=== PATIENT | male | born 1985 | race Caucasian/White ===

== ENCOUNTER 2018-05-13 14:17 | Emergency (ER) | payer OTHER ==
[~2018-05-13] VITALS: Ht 162.6 cm; Wt 58.5 kg
[2018-05-13 14:29] VITALS: BP 133/79
--- NOTE | 2018-05-13 14:41 | NUR ---
PT AMBULATED TO ER BED 02
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
[2018-05-13] MEDS ORDERED: KETOROLAC 30 MG/ML VIAL IM ONE (15:15)
[2018-05-13] MEDS ORDERED: FLUORESCEIN OPTH STRIP 0.6 MG OP ONE (15:15)
[2018-05-13] MEDS ORDERED: TETRACAINE HCL/PF 0.5% OPTH 4 ML BTL OP ONE (15:15)
--- NOTE | 2018-05-13 15:16 | NUR ---
PT REFUSES TO HAVE IM SHOT. MADE DR LUCAS AWARE. ORDERS RECEIVED
[2018-05-13] MEDS ORDERED: IBUPROFEN 600 MG TAB PO ONE (15:25)
--- NOTE | 2018-05-13 15:34 | NUR ---
PT REFUSES TO TAKE PAIN PO MEDICATION AT THIS TIME. PT STATES HIS STOMACH IS EMPTY AND WOULD LIKE TO WAIT A FEW MINUTES. PATIENT OFFERED CRACKERS AND JELLO. KENDALL REFUSED
[2018-05-13 16:20] VITALS: BP 135/79
--- NOTE | 2018-05-13 16:21 | NUR ---
Patient discharged with v/s stable. Written and verbal after care instructions given and explained. Patient alert, oriented and verbalized understanding of instructions. Ambulatory with steady gait. All questions addressed prior to discharge. ID band removed. Patient advised to follow up with PMD. Rx of VALIUM AND IBUPROFEN given. Patient educated on indication of medication including possible reaction and side effects. Opportunity to ask questions provided and answered.
== END 2018-05-13 16:21 | disposition home or self-care (01) ==
LOC: MED 14:17
DX: S39.012A Strain of muscle, fascia and tendon of lower back, initial encounter (principal); S16.1XXA Strain of muscle, fascia and tendon at neck level, initial encounter; S46.911A Strain of unspecified muscle, fascia and tendon at shoulder and upper arm level, right arm, initial encounter; R07.89 Other chest pain; V89.2XXA Person injured in unspecified motor-vehicle accident, traffic, initial encounter; Y93.89 Activity, other specified; Y92.89 Other specified places as the place of occurrence of the external cause; Y99.8 Other external cause status
CPT/HCPCS: 71045; 99283; Q0092; J1885

== ENCOUNTER 2018-10-14 12:34 | Emergency (ER) | payer OTHER ==
[~2018-10-14] VITALS: Ht 152.4 cm; Wt 57.6 kg
[2018-10-14 13:18] VITALS: BP 131/73
--- NOTE | 2018-10-14 13:21 | NUR ---
PT SENT TO LOBBY TO WAIT FOR ER BED.
--- NOTE | 2018-10-14 13:30 | NUR ---
Patient taken from ED lobby to XRAY via wheelchair by tech.
--- NOTE | 2018-10-14 13:47 | NUR ---
Patient returned to ED lobby to wait for an available bed.
--- NOTE | 2018-10-14 14:35 | NUR ---
PATIENT AMBULATED TO ER CHAIR C.
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
[2018-10-14] MEDS ORDERED: IBUPROFEN 400 MG TAB PO ONE (14:50)
[2018-10-14 15:08] VITALS: BP 148/88
--- NOTE | 2018-10-14 15:08 | NUR ---
Patient discharged with v/s stable. Written and verbal after care instructions given and explained. Patient alert, oriented and verbalized understanding of instructions. Ambulatory with steady gait. All questions addressed prior to discharge. ID band removed. Patient advised to follow up with PMD. Rx of IBUPROFEN 600MG given. Patient educated on indication of medication including possible reaction and side effects. Opportunity to ask questions provided and answered.
== END 2018-10-14 15:08 | disposition home or self-care (01) ==
LOC: MED 12:34
DX: S20.211A Contusion of right front wall of thorax, initial encounter (principal); W50.0XXA Accidental hit or strike by another person, initial encounter; Y93.89 Activity, other specified; Y92.89 Other specified places as the place of occurrence of the external cause; Y99.8 Other external cause status
CPT/HCPCS: 71101; 99283

== ENCOUNTER 2019-12-23 11:02 | Emergency (ER) | payer OTHER ==
[~2019-12-23] VITALS: Ht 152.4 cm; Wt 59.0 kg
[2019-12-23 11:11] VITALS: BP 156/114
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
--- NOTE | 2019-12-23 11:40 | NUR ---
Patient discharged with v/s stable. Written and verbal after care instructions about viral infections given and explained. Patient alert, oriented and verbalized understanding of instructions. Ambulatory with steady gait. All questions addressed prior to discharge. ID band removed. Patient advised to follow up with PMD. Rx of lomotil and zofran given. Patient educated on indication of medication including possible reaction and side effects. Opportunity to ask questions provided and answered.
[2019-12-23 11:42] VITALS: BP 141/97
== END 2019-12-23 11:40 | disposition home or self-care (01) ==
LOC: MED 11:02
DX: R50.9 Fever, unspecified (principal); F12.90 Cannabis use, unspecified, uncomplicated
CPT/HCPCS: 99283